=== PATIENT | female | born 1965 | race Caucasian/White ===

== ENCOUNTER 2019-11-21 08:31 | Emergency (ER) | payer BC ==
[~2019-11-21] VITALS: Ht 160 cm; Wt 68.0 kg
[2019-11-21 08:34] VITALS: BP 123/77
[2019-11-21] MEDS ORDERED: ACETAMINOPHEN 500 MG TAB PO ONE (09:00)
== END 2019-11-21 11:41 | disposition home or self-care (01) ==
LOC: ER 08:31
DX: S82.891A Other fracture of right lower leg, initial encounter for closed fracture (principal); X58.XXXA Exposure to other specified factors, initial encounter; Y93.89 Activity, other specified; Y99.8 Other external cause status; Y92.89 Other specified places as the place of occurrence of the external cause
CPT/HCPCS: 29515; 73610; 73700